=== PATIENT | male | born 1960 | race Caucasian/White ===

== ENCOUNTER 2020-07-28 06:46 | Day surgery (SDC) | payer BC ==
[2020-07-28] MEDS ORDERED: fentaNYL 100 MCG/2 ML SDV ONE (06:54)
[2020-07-28] MEDS ORDERED: Midazolam 1 MG/ML 2 ML SDV ONE (06:54)
[2020-07-28] MEDS ORDERED: Propofol 200 MG/20 ML SDV ONE (06:54)
[2020-07-28] MEDS ORDERED: Sodium Chloride 0.9% 1,000 ML IV SCH (08:15)
--- NOTE | 2020-07-28 11:13 | PN ---
DATE OF SERVICE: 07/28/2020 The patient had inadequate prep. He was discussed the risks, benefits, alternatives, and limitations, recommended repeat colonoscopy. He politely declined. We discussed the fact that he may miss colorectal cancers and other pathology. He understands these risks and wishes not to proceed. Sohail Baker MD /[id number]
--- NOTE | 2020-07-29 08:03 | OR ---
DATE OF PROCEDURE: 07/28/2020 SURGEON: Sohail Baker MD PROCEDURE: Colonoscopy. FINDINGS: 1. Normal colonoscopy. 2. Poor colon prep. COMPLICATIONS: None. 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 ANESTHESIA: MAC. PREOPERATIVE DIAGNOSIS: Screening colonoscopy. POSTOPERATIVE DIAGNOSIS: Screening colonoscopy. RISKS: Risks, benefits, alternatives, and limitations including, but not limited to infection, bleeding, perforation, false positives and false negatives were explained to the patient who wished to proceed. PROCEDURE IN DETAIL: The patient was placed in left lateral decubitus position. Digital rectal exam was performed without abnormality. Scope was introduced and advanced atraumatically to the ileocecal valve. Scope was brought back to the ascending, transverse, descending colon, and retroflexed. The prep was marginal, approximately 85% to 90% of the luminal surface could be seen. Suction irrigation techniques were used to increase this percentage. There was solid and liquid stool remaining. No old or new blood. No masses. No polyps. No abnormalities on retroflexion. Greater than 8 minutes was spent removing the scope. The patient tolerated the procedure well. Sohail Baker MD /[id number]
== END 2020-07-28 10:16 | disposition home or self-care (01) ==
LOC: JP.SDS 06:46
PROVIDERS: ATTEND Surgery
DX: Z12.11 Encounter for screening for malignant neoplasm of colon (principal); I10 Essential (primary) hypertension
CPT/HCPCS: 45378; J2250; J2704; J3010; J7030

== ENCOUNTER 2020-08-22 10:32 | Emergency (ER) | payer BC ==
--- NOTE | 2020-08-22 11:47 | EDM.PDOC ---
ED HPI GENERAL MEDICAL PROBLEM - General Chief Complaint: General Stated Complaint: HIGH BLOOD PRESSURE Time Seen by Provider: 08/22/20 11:20 Source of Information: Reports: Patient History Limitations: Reports: No Limitations - History of Present Illness INITIAL COMMENTS - FREE TEXT/NARRATIVE: 60-year-old male is concerned that his had a couple of blood pressure readings in the 180s and 1 even at 210 over the last couple of days. No significant symptoms, he has had several clinic visits over the last 2 weeks. His last clinic visit labs were done and he was started on Lasix 20 mg daily for peripheral edema, he did not take his dose this morning. He is having some very brief chest tightness symptoms and occasional brief pains but none currently. He called the clinic this morning to discuss the higher blood pressure levels and they sent him to the emergency room. Onset: Unknown/Unsure Associated Symptoms: Reports: Other (Chronic peripheral edema, slow weight gain) denies Pain Score (Numeric/FACES): 0 - Related Data Allergies Allergy/AdvReac Type Severity Reaction Status Date / Time No Known Allergies Allergy Verified 08/22/20 10:55 Home Meds: Home Meds Albuterol Sulfate [Albuterol Sulfate Hfa] 2 inh INH Q6H PRN 07/25/20 [History] Fluticasone Propionate [Flonase] 2 inh INH DAILY PRN 07/25/20 [History] Labetalol [Normodyne] 200 mg PO BID 07/25/20 [History] Oxymetazoline [Afrin Original 0.05% Nasal [place]] 2 inh INH ASDIRECTED PRN 07/25/20 [History] Pumpkin Seed Oil/Saw [place] [Saw [place] 160 mg Softgel] 2,000 mg PO DAILY 07/25/20 [History] Sertraline [Zoloft] 25 mg PO DAILY 07/25/20 [History] Sildenafil Citrate 20 mg PO ASDIRECTED PRN 07/25/20 [History] Tamsulosin [Tamsulosin 24 Hr] 0.4 mg PO BID 07/25/20 [History] atorvaSTATin Calcium [Lipitor] 10 mg PO DAILY 07/25/20 [History] buPROPion HCL [Wellbutrin Xl] 300 mg PO DAILY 07/25/20 [History] lisinopriL [Zestril] 20 mg PO BID 07/25/20 [History] Furosemide 20 mg PO DAILY 08/22/20 [History] Past Medical History Cardiovascular History: Reports: High Cholesterol, Hypertension, OR Respiratory History: Reports: Asthma, Sleep Apnea Gastrointestinal History: Reports: Cholelithiasis, Colon Polyp, Other (See Below) Other Gastrointestinal History: healed ulcer Genitourinary History: Reports: BPH Psychiatric History: Reports: Depression Endocrine/Metabolic History: Reports: Obesity/BMI 30+ Hematologic History: Reports: Anemia - Infectious Disease History Infectious Disease History: Reports: Chicken Pox - Past Surgical History HEENT Surgical History: Reports: Naso-Sinus Surgery GI Surgical History: Reports: Cholecystectomy, Colonoscopy, EGD Male Surgical History: Reports: TURP-Transurethral Resection of Prostate Social & Family History - Tobacco Use Tobacco Use Status *Q: Never Tobacco User Second Hand Smoke Exposure: No - Caffeine Use Caffeine Use: Reports: Coffee - Alcohol Use Days Per Week of Alcohol Use: 3 Number of Drinks Per Day: 2 Total Drinks Per Week: 6 - Recreational Drug Use Recreational Drug Use: No ED ROS GENERAL - Review of Systems Review Of Systems: See Below Constitutional: Denies: Fever, Chills HEENT: Reports: No Symptoms Respiratory: Denies: Shortness of Breath Cardiovascular: Reports: Chest Pain (Occasional very brief pains) GI/Abdominal: Denies: Nausea, Vomiting Musculoskeletal: Reports: Other (He is having problems with chronic ingrown toenails) Skin: Reports: No Symptoms Free Text/Narrative/Comment: History of sleep apnea ED EXAM, GENERAL - Physical Exam Exam: See Below Exam Limited By: No Limitations General Appearance: Alert, No Apparent Distress Head: Atraumatic Neck: Supple, Non-Tender Respiratory/Chest: Lungs Clear Cardiovascular: Regular Rate, Rhythm. No: Extra Beats Extremities: Pedal Edema (1+ symmetric edema, he has support stockings on) Neurological: Alert, Oriented, No Motor/Sensory Deficits Psychiatric: Normal Affect, Normal Mood Skin Exam: Warm, Dry Course - Vital Signs Last Recorded V/S: Last Vital Signs Temp 97.4 F 08/22/20 11:12 Pulse 76 08/22/20 11:12 Resp 16 08/22/20 11:12 BP 151/88 H 08/22/20 11:12 Pulse Ox 99 08/22/20 11:12 - Re-Assessments/Exams Free Text/Narrative Re-Assessment/Exam: 08/22/20 12:47 I did get his recent lab values from the clinic, he has borderline renal insufficiency but otherwise things are reassuring and we went through these labs together. His blood pressure here in the emergency room is near normal. He is asymptomatic. I explained to him the importance of watching extra salt intake, continue his medications as prescribed, but most importantly increasing activity and losing weight and getting healthier. He can return anytime if symptoms are worsening or he develops other concerns. Departure - Departure Time of Disposition: 11:53 Disposition: Home, Self-Care 01 Clinical Impression: Essential hypertension - Discharge Information Instructions: Hypertension, Adult, [id number] Referrals: Katheryn Barragan MD [Primary Care Provider] - Forms: ED Department Discharge Care Plan Goals: Continue your medicines as prescribed including the Lasix, discuss your echocardiogram with your primary provider and try to increase your activity and decrease calorie and salt intake in the future. Return anytime if worsening such as persistent chest pain or shortness of breath. Sepsis Event Note (ED) - Evaluation Sepsis Screening Result: No Definite Risk - Focused Exam Vital Signs: Vital Signs Temp Pulse Resp BP Pulse Ox 08/22/20 11:12 97.4 F 76 16 151/88 H 99 08/22/20 11:07 97.4 F 80 16 160/81 H 16 L
== END 2020-08-22 11:53 | disposition home or self-care (01) ==
LOC: JP.ED 10:32
DX: I10 Essential (primary) hypertension (principal); E78.00 Pure hypercholesterolemia, unspecified; J45.909 Unspecified asthma, uncomplicated; I25.2 Old myocardial infarction; N40.0 Benign prostatic hyperplasia without lower urinary tract symptoms; E66.9 Obesity, unspecified; Z68.36 Body mass index [BMI] 36.0-36.9, adult; Z79.899 Other long term (current) drug therapy
CPT/HCPCS: 99282; 99283

== ENCOUNTER 2023-12-21 08:52 | Day surgery (SDC) | payer BC ==
[~2023-12-21 08:52] MED LIST: Lactated Ringers 1,000 ML IV SCH
[2023-12-21 09:14] LABS: HEMATOCRIT 40.2 % (38.4-49.7); HEMOGLOBIN 14.1 g/dL (12.9-16.9); MEAN CORPUSCULAR HEMOGLOBIN 31.1 pg (31.6-35.5); MEAN CORPUSCULAR HGB CONC 35.1 g/dL (31.6-35.5); MEAN CORPUSCULAR VOLUME 88.7 fL (81.4-99.0); RED BLOOD CELL COUNT 4.53 M/uL (4.14-5.76); WHITE BLOOD CELL COUNT,WBC 7.4 K/uL (3.2-11.0)
[2023-12-21 09:29] LABS: BLOOD UREA NITROGEN,BUN 18 mg/dL (7-18); CALCIUM 9.1 mg/dL (8.5-10.1); CARBON DIOXIDE,CO2 30 mmol/L (21-32); CHLORIDE,CL 103 mmol/L (100-108); CREATININE 1.4 mg/dL (0.8-1.3); ESTIMATED GFR 57 mL/min (>60); GLUCOSE RANDOM 105 mg/dL (74-106); POTASSIUM,K 3.2 mmol/L (3.6-5.2); SODIUM,NA 140 mmol/L (140-148)
[2023-12-21 09:33] LABS: ANION GAP 10.2 mmol/L (5.0-14.0)
[2023-12-21] MEDS: Lactated Ringers 1,000 ML IV SCH (10:00)
[2023-12-21] MEDS: Nozin Nasal Sanitizer NASBOTH ONE (10:04)
[2023-12-21] MEDS: ceFAZolin 2 GM in Premix Bag 1 BAG IV ONE (10:20)
[2023-12-21] MEDS ORDERED: fentaNYL 250 MCG/5 ML SDV ONE ×2 (11:03→11:45)
[2023-12-21] MEDS ORDERED: Succinylcholine 200 MG/10 ML MDV ONE (11:04)
[2023-12-21] MEDS ORDERED: Neostigmine Methylsulfate 10 MG/10 ML MDV ONE (11:04)
[2023-12-21] MEDS ORDERED: Rocuronium 50 MG/5 ML Vial ONE (11:04)
[2023-12-21] MEDS ORDERED: Dexamethasone 4 MG/ML SDV ONE (11:04)
[2023-12-21] MEDS ORDERED: Propofol 200 MG/20 ML SDV ONE (11:04)
[2023-12-21] MEDS ORDERED: Glycopyrrolate 0.2 MG/ML 5 ML MDV ONE (11:04)
[2023-12-21] MEDS ORDERED: Ondansetron 4 MG/2 ML SDV ONE (11:04)
[2023-12-21] MEDS: Bupivacaine 0.5% 50 ML MDV ONE (11:52)
[2023-12-21] MEDS: Acetaminophen/HYDROcodone 325-5 MG Tab PO PRN (13:03)
== END 2023-12-21 14:17 | disposition home or self-care (01) ==
LOC: JP.SDS 08:52
PROVIDERS: ATTEND Specialist
DX: S83.241A Other tear of medial meniscus, current injury, right knee, initial encounter (principal); M94.261 Chondromalacia, right knee; I10 Essential (primary) hypertension; F41.9 Anxiety disorder, unspecified; X58.XXXA Exposure to other specified factors, initial encounter
CPT/HCPCS: 01400-QZ; 36415; 80048; 85027; 93005; A9270-GY; J0330; J0665; J0690; J1100; J1596; J2405; J2704; J2710; J3010; J3490; J7120

== ENCOUNTER 2024-08-01 14:27 | Inpatient (IN) | payer BC ==
[2024-08-01] MEDS: Iopamidol 612 MG/ML 100 ML Bottle IV SCH (16:33)
[2024-08-01] MEDS: Sodium Chloride 0.9% 80 ML IV SCH (16:33)
[2024-08-01 17:16] LABS: BASOPHILS ABSOLUTE AUTO 0.04 K/uL (0.00-0.10); BASOPHILS PERCENT AUTO 0.3 % (0.1-1.3); EOSINOPHILS PERCENT AUTO 0.1 % (0.0-5.4); HEMATOCRIT 48.6 % (38.4-49.7); HEMOGLOBIN 16.6 g/dL (12.9-16.9); IMMATURE GRAN ABSOLUTE AUTO 0.05 K/uL (0.00-0.23); IMMATURE GRAN PERCENT AUTO 0.3 % (0.0-0.7); LYMPHOCYTES ABSOLUTE AUTO 1.62 K/uL (0.8-3.3); LYMPHOCYTES PERCENT AUTO 11.1 % (11.4-47.7); MEAN CORPUSCULAR HGB CONC 34.2 g/dL (31.6-35.5); MEAN CORPUSCULAR VOLUME 90.7 fL (81.4-99.0); MONOCYTES ABSOLUTE AUTO 0.93 K/uL (0.20-0.90); MONOCYTES PERCENT AUTO 6.4 % (3.3-12.6); NEUTROPHILS ABSOLUTE AUTO 11.95 K/uL (1.0-7.6); NEUTROPHILS PERCENT AUTO 81.8 % (40.0-78.1); PLATELET COUNT,PLT 312 K/uL (130-375); RED BLOOD CELL COUNT 5.36 M/uL (4.14-5.76); WHITE BLOOD CELL COUNT,WBC 14.6 K/uL (3.2-11.0)
[2024-08-01 17:18] LABS: EOSINOPHILS ABSOLUTE AUTO 0.01 K/uL (0.00-0.40)
[2024-08-01 17:46] LABS: ALANINE AMINOTRANSFERASE,ALT 79 U/L (12-78); ALBUMIN 3.7 g/dL (3.4-5.0); ALKALINE PHOSPHATASE 93 U/L (46-116); ANION GAP 13.4 mmol/L (5.0-14.0); ASPARTATE AMNIOTRANSFERASE,AST 41 U/L (15-37); BILIRUBIN TOTAL 0.8 mg/dL (0.2-1.0); BLOOD UREA NITROGEN,BUN 17 mg/dL (7-18); C-REACTIVE PROTEIN 1.41 mg/dL (<0.50); CALCIUM 9.8 mg/dL (8.5-10.1); CARBON DIOXIDE,CO2 30 mmol/L (21-32); CHLORIDE,CL 102 mmol/L (100-108); CREATININE 1.4 mg/dL (0.8-1.3); EST CRCL DRUG DOSING (CG) 58.27 mL/min; ESTIMATED GFR 57 mL/min (>60); GLUCOSE RANDOM 117 mg/dL (74-106); POTASSIUM,K 3.4 mmol/L (3.6-5.2); PROTEIN TOTAL,TP 7.4 g/dL (6.4-8.2); SODIUM,NA 142 mmol/L (140-148)
[2024-08-01 18:30] LABS: APPEARANCE,URINE CLEAR (CLEAR); BILIRUBIN,URINE NEGATIVE (NEGATIVE); COLOR,URINE YELLOW (YELLOW); GLUCOSE,URINE NEGATIVE (NEGATIVE); KETONES,URINE NEGATIVE (NEGATIVE); LEUKOCYTE ESTERASE,URINE NEGATIVE (NEGATIVE); NITRITE,URINE NEGATIVE (NEGATIVE); OCCULT BLOOD,URINE MODERATE (NEGATIVE); PROTEIN,URINE 100 mg/dL (NEGATIVE); UROBILINOGEN,URINE 0.2 EU/dL (0.2-1.0)
[2024-08-01 18:35] LABS: AMORPHOUS SEDIMENT,URINE NOT SEEN; BACTERIA,URINE RARE; EPITHELIAL CELLS,URINE NOT SEEN; MUCUS,URINE NOT SEEN; WBC,URINE 0-5 (0-5)
[2024-08-01] MEDS: Sodium Chloride 0.9% 3,000 ML IV ONE (18:59)
[2024-08-01] MEDS: cefTRIAXone 2 GM in Sodium Chloride 0.9% 50 ML IV SCH (20:06)
[2024-08-01] MEDS ORDERED: Ondansetron 4 MG/2 ML SDV IV PRN (20:49)
[2024-08-01] MEDS ORDERED: Fluticasone NASAL Spray 16 GM Bottle NASBOTH PRN (20:49)
[2024-08-01] MEDS ORDERED: HYDROmorphone 1 MG/ML Syringe IVPUSH PRN (20:49)
[2024-08-01] MEDS ORDERED: Naloxone 0.4 MG/ML SDV IVPUSH PRN (20:49)
[2024-08-01] MEDS: Tamsulosin 0.4 MG Cap.ER PO SCH (21:25)
[2024-08-01] MEDS: Potassium Chloride 20 MEQ in Premix Bag 1 BAG IV ONE (21:36)
[2024-08-01] MEDS: Enoxaparin 40 MG/0.4 ML Syringe SUBCUT SCH (21:36)
[2024-08-01] MEDS: Pantoprazole 40 MG Vial IV SCH (21:36)
[2024-08-01] MEDS: Labetalol 100 MG Tab PO SCH (21:37)
[2024-08-01] MEDS: Acetaminophen 325 MG Tab PO PRN (22:24)
[2024-08-01 23:47] LABS: LACTIC ACID 0.6 mmol/L (0.4-2.0)
[2024-08-02] MEDS: Sodium Chloride 0.9% 1,000 ML IV SCH ×2 (02:00→10:46)
[2024-08-02 05:53] LABS: BASOPHILS ABSOLUTE AUTO 0.05 K/uL (0.00-0.10); BASOPHILS PERCENT AUTO 0.5 % (0.1-1.3); EOSINOPHILS ABSOLUTE AUTO 0.19 K/uL (0.00-0.40); EOSINOPHILS PERCENT AUTO 1.8 % (0.0-5.4); HEMATOCRIT 44.4 % (38.4-49.7); IMMATURE GRAN PERCENT AUTO 0.2 % (0.0-0.7); LYMPHOCYTES ABSOLUTE AUTO 2.87 K/uL (0.8-3.3); LYMPHOCYTES PERCENT AUTO 27.1 % (11.4-47.7); MEAN CORPUSCULAR HEMOGLOBIN 31.2 pg (31.6-35.5); MEAN CORPUSCULAR HGB CONC 33.8 g/dL (31.6-35.5); MEAN CORPUSCULAR VOLUME 92.3 fL (81.4-99.0); MONOCYTES ABSOLUTE AUTO 1.18 K/uL (0.20-0.90); MONOCYTES PERCENT AUTO 11.1 % (3.3-12.6); NEUTROPHILS ABSOLUTE AUTO 6.29 K/uL (1.0-7.6); NEUTROPHILS PERCENT AUTO 59.3 % (40.0-78.1); PLATELET COUNT,PLT 258 K/uL (130-375); RED BLOOD CELL COUNT 4.81 M/uL (4.14-5.76); WHITE BLOOD CELL COUNT,WBC 10.6 K/uL (3.2-11.0)
[2024-08-02 06:04] LABS: IMMATURE GRAN ABSOLUTE AUTO 0.02 K/uL (0.00-0.23)
[2024-08-02 06:16] LABS: ALANINE AMINOTRANSFERASE,ALT 65 U/L (12-78); ALKALINE PHOSPHATASE 72 U/L (46-116); ASPARTATE AMNIOTRANSFERASE,AST 28 U/L (15-37); BILIRUBIN TOTAL 0.7 mg/dL (0.2-1.0); BLOOD UREA NITROGEN,BUN 17 mg/dL (7-18); CALCIUM 9.2 mg/dL (8.5-10.1); CARBON DIOXIDE,CO2 27 mmol/L (21-32); CHLORIDE,CL 107 mmol/L (100-108); CREATININE 1.6 mg/dL (0.8-1.3); EST CRCL DRUG DOSING (CG) 50.98 mL/min; ESTIMATED GFR 48 mL/min (>60); GLUCOSE RANDOM 104 mg/dL (74-106); POTASSIUM,K 3.5 mmol/L (3.6-5.2); PROTEIN TOTAL,TP 6.1 g/dL (6.4-8.2); SODIUM,NA 144 mmol/L (140-148)
[2024-08-02 06:19] LABS: ANION GAP 13.5 mmol/L (5.0-14.0)
[2024-08-02] MEDS ORDERED: HYDROmorphone 0.5 MG/0.5 ML Syringe IVPUSH PRN (07:01)
[2024-08-02] MEDS: Chlorthalidone 25 MG Tab PO SCH (08:43)
[2024-08-02] MEDS: Sertraline 25 MG Tab PO SCH (08:43)
[2024-08-02] MEDS: buPROPion 150 MG Tab.ER PO SCH (08:43)
[2024-08-02] MEDS: Losartan 50 MG Tab PO SCH (08:43)
== END 2024-08-03 12:35 | disposition home or self-care (01) | DRG 252 ==
LOC: JP.ED 14:27 → JP.MS 19:55
PROVIDERS: ADMIT Nurse Practitioner; ATTEND Internal Medicine
DX: K91.30 Postprocedural intestinal obstruction, unspecified as to partial versus complete (principal); E87.20 Acidosis, unspecified; F32.A Depression, unspecified; I10 Essential (primary) hypertension; I25.10 Atherosclerotic heart disease of native coronary artery without angina pectoris; F10.90 Alcohol use, unspecified, uncomplicated; E78.00 Pure hypercholesterolemia, unspecified; G47.30 Sleep apnea, unspecified; F15.90 Other stimulant use, unspecified, uncomplicated; E87.6 Hypokalemia; G47.33 Obstructive sleep apnea (adult) (pediatric); E86.0 Dehydration; E66.9 Obesity, unspecified; Z87.440 Personal history of urinary (tract) infections; Z86.16 Personal history of COVID-19; Z98.890 Other specified postprocedural states; Z88.8 Allergy status to other drugs, medicaments and biological substances; Z79.51 Long term (current) use of inhaled steroids; Z90.49 Acquired absence of other specified parts of digestive tract; Z79.02 Long term (current) use of antithrombotics/antiplatelets; Z90.79 Acquired absence of other genital organ(s); Z99.81 Dependence on supplemental oxygen; Z68.39 Body mass index [BMI] 39.0-39.9, adult
CPT/HCPCS: 36415; 74019; 74019-26; 74177; 80053; 81001; 83605; 85025; 86140; 87040; 99223; 99232; 99238; 99285; A9270-GY; J0696; J1650; J2470; J3480; J7030; Q9967